=== PATIENT | female | born 1965 ===

== ENCOUNTER 2023-06-21 17:37 | Emergency (ER) | payer OTHER, SELFPAY ==
[2023-06-21 17:47] VITALS: BP 147/99; PULSE 66; RESP 20; TEMP 37; O2SAT 99
--- NOTE | 2023-06-21 19:22 | W.ED.GENAD ---
Discharge Plan Disposition Patient Disposition: Home Condition: Improving Discharge Details Clinical Impression: Migraine Primary Care Provider: None,None ED Provider: Dina Olson Discharge Instructions Instructions: Acute Rash (ED), General Headache (ED) Additional Instructions: 1. Alternate 1000 mg acetaminophen every 3 hours with 400 to 600 mg of ibuprofen as needed for pain. 2. You should be contacted by the neurology office and primary care with follow-up appointments. 3. Return to the emergency department for any new or worrisome symptoms such as fever, stiff neck. Discharge Data Discharge Physician: Dina Olson Medical Decision Making This is a 57-year-old female with longstanding history of headaches that do sound migrainous because they have an aura who presents with a headache. She has not had any trauma and her neurologic exam is normal except for her a positive Romberg although she opens her eyes and adjusts her stance and does not fall. After shared decision making she has elected not to have a CT scan done. She does have a history of prior sinus surgery but has no evidence of a URI. She also has a history of depression but is not actively suicidal or homicidal. My plan is to give her an IM dose of ketorolac although I did offer her p.o. ibuprofen along with acetaminophen and we will have her follow-up with primary care and neurology. Differential Diagnosis Differential Diagnosis: Migraine, tension headache, stress, I doubt [facility] Medical Records Medical records reviewed: Yes I reviewed the patient's medical records. HPI General Date/Time Provider Initiated Documentation: 06/21/23 18:14. Limitations to Documentation: no limitations. Information obtained by: patient (And her boyfriend), RN notes reviewed and old records reviewed. History of Present Illness with intensity rated at 7. HPI Narrative: Time seen was 8 PM in bed 11. The patient is a 57-year-old female who has moved here temporarily from the [place] but also spent some time in [place] prior to arrival. She tells me that she has chronic headaches and presents today with 3 weeks of headaches dizziness and weakness. She has had prior sinus surgery but denies any nasal congestion fever chills or cold symptoms. She tells me she does occasionally have an oral. She has seen a neurologist in [place] for carpal tunnel but has never seen a neurologist for her headaches. She has had nausea but no fever. The headache feels as though she is being pinched. It is 7 out of 10 in severity and aggravated by noise and light. She also has had a rash for about 4 weeks which began on her legs and has moved to her arms. It is not pruritic or painful. She denies any new soaps lotions or detergents. She did see an eye doctor in the [place] and received new glasses prior to arrival but this did not help her headache symptoms. She also has a history of depression and is on medications. She denies any homicidal or suicidal ideation. She is in the area helping her son get settled here. She has not been turning on her heat and does not know if she has a working carbon monoxide detector. She denies any stiff neck. She denies any recent changes in vision. She has been nauseated but has not had any vomiting or diarrhea. Currently the pain is located over her forehead. She describes it as nonthrobbing Related Data Allergies Allergy/AdvReac Type Severity Reaction Status Date / Time latex Allergy Mild Skin Rash Unverified 06/21/23 17:50 General Stated Complaint: Headache SCOTT: 3 Review of Systems Narrative: see hpi Constitutional Constitutional: Denies body ache(s), Denies chills, Denies fever(s), Denies frequent falls, Reports headache(s), Reports lethargy and Reports malaise Eyes Eyes: Reports system reviewed and no additional complaints, except as documented, Reports blurry vision, Denies diplopia, Denies eye discharge, Denies itchy eyes, Reports requires corrective lenses and Reports photophobia Comments: The patient does describe sparkly lights prior to the onset of her headaches. She also tells me she has a history of macular degeneration. She saw an eye doctor in the [place] several months ago. ENT Ears, Nose, Mouth, and Throat: Denies dysphagia, Denies vertigo, Reports dizziness, Reports headache(s), Denies nasal congestion, Denies nasal discharge, Denies nasal trauma, Denies odynophagia and Reports disequilibrium Comments: No URI symptoms. The patient has had sinus surgery Cardiovascular Cardiovascular: Denies chest pain, Denies syncope and Denies dyspnea Respiratory Respiratory: Denies dyspnea Gastrointestinal Gastrointestinal: Denies dysphagia and Denies odynophagia Genitourinary Genitourinary: Denies dysuria Musculoskeletal Musculoskeletal: Denies joint swelling and Denies numbness Neurologic Neurologic: Denies abnormal movements, Denies abnormal speech, Denies vertigo, Reports dizziness, Denies syncope, Denies frequent falls, Reports headache(s), Denies localized weakness, Denies memory loss, Denies numbness, Denies seizure-like activity, Denies sensory deficit, Denies paresthesias and Reports disequilibrium Psychiatric Psychiatric: Denies memory loss Hematologic/Lymphatic Comments: The patient is on therapeutic anticoagulants Allergic/Immunologic Allergic/Immunologic: Denies itchy eyes PFSH All Active Problems Migraine (Chronic) Social History Smoking risk assessment performed?: No Alcohol Intake: never Exam Narrative Exam Narrative: The patient is a well-developed well-nourished female who is alert and oriented in no acute distress. She is not clinically intoxicated. She is mildly hypertensive. She is not febrile tachycardic or tachypneic. Room air O2 sat is normal at 99%. Const General: cooperative, healthy appearing, comfortable, no acute distress, well developed, well groomed and well hydrated Nutritional Appearance: average body habitus and well nourished Orientation: alert, awake and oriented x3 HENMT Head: normal to inspection, normocephalic and atraumatic Ears: hearing grossly normal bilaterally, external ears normal and TM's normal bilaterally General nose exam: external nose normal, nares normal and no nasal discharge Face and sinus: normal facial exam, sinuses nontender and face symmetric Mouth: oral mucosae normal, lip normal, tongue normal, oropharynx normal, moist mucous membranes and other (Normal phonation. The patient is handling secretions.) Throat: posterior oropharynx normal and uvula midline Eyes General: appearance normal, both eyes and all related structures Eyelids: eyelids normal Conjunctivae: conjunctivae normal Sclera: sclerae normal Cornea: corneas normal Pupils: PERRL EOM: EOM intact bilaterally and No nystagmus Direct ophthalmoscopy: normal light reflex and fundi normal bilaterally Other: Her discs are sharp. She is not significantly photophobic Neck Neck: normal visual inspection, full ROM, no lymphadenopathy, no meningeal signs, trachea midline and supple Lymphatic: no lymphadenopathy noted Chest Chest: normal inspection of the chest Resp Effort & Inspection: normal respiratory effort, able to speak in complete sentences, no audible wheezes, no nasal flaring, no respiratory distress, no retractions, no stridor, not tachypneic, no tracheal deviation, no use of accessory muscles, No prolonged expiratory phase and other (Normal inspiratory to expiratory ratio.) Auscultation: clear to auscultation bilaterally, no rales, no rhonchi, no wheezes and no rubs Tactile Fremitus: tactile fremitus absent Cardio Jugular venous pressure: no JVD Palpation: normal PMI Rate: regular rate Rhythm: regular rhythm Heart Sounds: S1 normal, S2 normal, no gallops, no murmurs and no rubs GI Inspection: normal to inspection and non-distended Palpation: soft, no hepatosplenomegaly, no guarding and nontender Percussion: normal to percussion Auscultation: normal bowel sounds General: No CVA tenderness Back/Spine/Pelvis Back: no CVA tenderness and No back tenderness Cervical Spine: normal cervical lordosis, cervical ROM normal, No cervical muscular tenderness, No pain with cervical ROM, No cervical spinal tenderness and No step off deformity Thoracic/Lumbar Spine: thoracic and lumbar spine normal to inspection, No thoracic spinal tenderness and No lumbar spinal tenderness Skin General skin exam: no rashes or lesions noted, turgor normal, no petechiae, no purpura and other (Skin is normal for ethnicity.) Lesions: no lesions Rashes: no rashes Trauma: no lacerations or abrasions Other: Her skin reveals a lacy rash on her legs and arms. There is no petechiae or purpura. There is no warmth or lymphangitis. There is no fluctuance or subcutaneous emphysema. Neuro General: patient alert, patient awake, patient oriented x3, moves all extremities, no meningeal signs, no focal motor deficits and CN's II-XI intact bilaterally Cranial Nerves: CN's II-XI intact bilaterally, PERRL, accommodation normal, EOM intact bilaterally, no nystagmus, facial strength normal, tongue midline, hearing normal and no nystagmus Cognition: normal cognition Speech: speech normal Gait: normal gait Motor: muscle tone normal throughout and strength 5/5 throughout Sensory Exam: no sensory deficits noted DTR's: Rt Biceps: 2+, Lt Biceps: 2+, Rt Brachioradialis: 2+, Lt Brachioradialis: 2+, Rt Patellar: 2+, Lt Patellar: 2+, Rt Ankle: 1+ and Lt Ankle: 1+ Plantar Reflexes: Downgoing: bilateral Coordination: [id number] test normal Pupils: Mid position: bilateral Other: The patient has normal finger-nose. There is no pronator drift. However when I attempted to do a Romberg she fell forward and open her eyes and was able to catch herself. She did have tandem gait. Extrem General: normal to inspection, full ROM, capillary refill normal, no clubbing, cyanosis or edema and no calf tenderness Psych Appearance: grossly normal Speech and Movement: speech and movement normal Affect: normal affect Attitude: cooperative Thought Process: normal Thought Content: normal Insight: insight good Judgment: judgment good Other: The patient appears to have capacity make medical decisions. She denied homicidal or suicidal ideation. Course Reevaluation(s) Initial Evaluation: I discussed obtaining a noncontrast head CT because of her positive Romberg but after shared decision making she elected not to get the CT scan. We discussed her following up with primary care and neurology. I have advised her to alternate acetaminophen every 3 hours with ibuprofen as needed for pain. I have advised her to return if she develops any new or worrisome symptoms. We do not have a chief lending officer on staff but I advised her to ask for referral when she follows up with primary care. The patient voiced understanding agree with the discharge plan. All her questions and concerns were addressed prior to discharge. Vital Signs Vital signs: Vital Signs Temperature 37.0 C 06/21/23 17:47 Pulse 66 06/21/23 17:47 Respiratory Rate 20 06/21/23 17:47 Blood Pressure 147/99 H 06/21/23 17:47 Pulse Oximetry 99 06/21/23 17:47 Temperature 37.0 C 06/21/23 17:47 Temperature Source Oral 06/21/23 17:47 Pulse 66 06/21/23 17:47 Respiratory Rate 20 06/21/23 17:47 Respiratory Effort Normal 06/21/23 17:51 Blood Pressure 147/99 H 06/21/23 17:47 Blood Pressure Position Sitting 06/21/23 17:47 Pulse Oximetry 99 06/21/23 17:47 Oxygen Delivery Method Room Air 09/13/23 17:47 Oxygen Flow Rate 0 06/21/23 17:47 Pain Level 8 06/21/23 17:47 Lab/Test Results Lab/Test Results: None indicated
--- NOTE | 2023-06-21 20:33 | NUR.NOTE ---
Referral faxed to [facility] Neurology to f/u next available appt. also copy to Care Management to establish pcp.Nursing Note:
[2023-06-21] MEDS: Acetaminophen 500 MG TAB 1000 MG PO (20:40)
[2023-06-21] MEDS: Ketorolac 30 MG/ML VIAL IM (20:40)
[2023-06-21 20:48] VITALS: BP 147/92; PULSE 63; TEMP 36.3; O2SAT 99
== END 2023-06-21 20:48 | disposition home or self-care (01) ==
PROVIDERS: Emergency Provider Emergency Medicine Emergency Medical Services
DX: G43.909 Migraine, unspecified, not intractable, without status migrainosus (principal); R11.0 Nausea; R21 Rash and other nonspecific skin eruption; Z98.890 Other specified postprocedural states
CPT/HCPCS: 96372; 99284; 99283; J1885